=== PATIENT | female | born 1930 | race Caucasian/White ===

== ENCOUNTER 2019-05-17 17:35 | Emergency (ER) | payer MEDICARE, MEDICAID ==
[~2019-05-17] VITALS: Ht 162.6 cm; Wt 71.0 kg
[2019-05-17 19:54] VITALS: BP 164/64
== END 2019-05-17 19:56 | disposition home or self-care (01) ==
LOC: ER 17:36
DX: S51.811A Laceration without foreign body of right forearm, initial encounter (principal); S60.221A Contusion of right hand, initial encounter; I10 Essential (primary) hypertension; W18.39XA Other fall on same level, initial encounter; Y93.89 Activity, other specified; Y92.091 Bathroom in other non-institutional residence as the place of occurrence of the external cause; Y99.8 Other external cause status
CPT/HCPCS: 73090; 73130; 99284

== ENCOUNTER 2020-01-15 15:58 | Emergency (ER) | payer MEDICARE, MEDICAID ==
[~2020-01-15] VITALS: Ht 162.6 cm; Wt 65.9 kg
[2020-01-15 16:00] VITALS: BP 185/107
== END 2020-01-15 16:22 | disposition home or self-care (01) ==
LOC: ER 15:59
DX: J39.2 Other diseases of pharynx (principal); I10 Essential (primary) hypertension
CPT/HCPCS: 99281